=== PATIENT | female | born 1980 | race Caucasian/White ===

== ENCOUNTER 2017-12-28 11:01 | Emergency (ER) | payer OTHER ==
[~2017-12-28 11:01] MED LIST: OXYC1SOL5 PO; PRENTAB72 PO
[2017-12-28 11:11] VITALS: BP 104/59; PULSE 78; RESP 20; TEMP 98.5; O2SAT 99
--- NOTE | 2017-12-28 11:55 | PD ---
HPI Chief Complaint: Back/ Neck Pain or Injury Time Seen by Provider: 11:47 Travel History International Travel<30 days: No Contact w/Intl Traveler<30days: No Traveled to known affect area: No History of Present Illness HPI 37-year-old female presents emergency department evaluation of lower back pain that radiates to the legs that has been present for approximately 1 day. Says that she was lifting some chairs when she developed some pain in her lower back and is worsened over the last day. Says her pain is located lower lumbar region across the back that radiates into her right thigh and groin. Says the pain is shooting pain, burning pain. No palliative or provocative factors. Denies numbness or tingling the extremities. Denies weakness. Denies fevers, loss of bowel or bladder function, saddle anesthesia, IV drug use, direct trauma. PFSH Past Medical History Diminished Hearing: No GERD: Yes Migraines: Yes Tetanus Vaccination: Unknown Influenza Vaccination: Yes ?: Unknown LMP: TWO WEEKS AGO Social History Alcohol Use: No Tobacco Use: No Substance Use: No Allergies-Medications (Allergen,Severity, Reaction): Coded Allergies: Sulfa (Sulfonamide Antibiotics) (Unverified Allergy, Unknown, 03/12/17) Reported Meds & Prescriptions Reported Meds & Active Scripts Active Review of Systems Except as stated in HPI: all other systems reviewed are Neg Physical Exam Narrative GENERAL: Well-nourished, well-developed patient, in NAD SKIN: Focused skin assessment warm/dry. No rashes or lesions. HEAD: Normocephalic. Atraumatic. EYES: No scleral icterus. No injection or drainage. PERRLA, EOMI THROAT: No pharyngeal injection, exudates, or tonsillar hypertrophy. Airway is patent. NECK: Supple, trachea midline. No JVD or lymphadenopathy. No meningismus. CARDIOVASCULAR: Regular rate and rhythm without murmurs, gallops, or rubs. RESPIRATORY: Breath sounds equal bilaterally. No accessory muscle use. No wheezes, rales, or rhonchi MUSCULOSKELETAL: No cyanosis, or edema. BACK: No CVA tenderness. No rash. No point tenderness on palpation of the spine. Mild tenderness palpation lower paraspinous muscles of the lumbar spine. Bilateral lower extremities neurovascularly intact. DTRs 2/4. Data Data Last Documented VS Vital Signs Date Time Temp Pulse Resp B/P (MAP) Pulse Ox O2 Delivery O2 Flow Rate FiO2 12/28/17 11:11 98.5 78 20 104/59 (74) 99 Orders Orders Dexamethasone Inj (Decadron Inj) (12/28/17 12:00) Orphenadrine Inj (Norflex Inj) (12/28/17 12:00) MDM Medical Decision Making Medical Screen Exam Complete: Yes Emergency Medical Condition: Yes Differential Diagnosis Lumbar spine muscle spasms, lumbago, sciatica Narrative Course 37-year-old female presents emergency department evaluation of lower back pain that radiates to the legs that has been present for approximately 1 day. Says that she was lifting some chairs when she developed some pain in her lower back and is worsened over the last day. Says her pain is located lower lumbar region across the back that radiates into her right thigh and groin. Says the pain is shooting pain, burning pain. No palliative or provocative factors. Denies numbness or tingling the extremities. Denies weakness. Denies fevers, loss of bowel or bladder function, saddle anesthesia, IV drug use, direct trauma. Vital signs are stable. Physical exam findings are reassuring. There is some mild tenderness palpation of lower lumbar spine without obvious muscle spasms. Patient took 800 mg Motrin prior to arrival and this did seem to reduce pain slightly. Dexamethasone and Norflex administered. Patient will be discharged with Robaxin and Medrol Dosepak to start tomorrow. She is advised to follow-up with a primary care physician. Return for worsening or persistent symptoms. Diagnosis Primary Impression: Lumbago Qualified Codes: M54.5 - Low back pain Additional Impression: Back sprain Referrals: Primary Care Physician Additional Instructions: Perform light stretches of the lower back and legs, and alternate heat and ice packs. If you develop increased pain, weakness, fever, chills, or bowel or bladder issues, return to the ED for further treatment and evaluation. Follow up with your primary care physician in 2-3 days. Disposition: 01 DISCHARGE HOME Condition: Stable Adrianna Mccracken Dec 28, 2017 11:55
[2017-12-28] MEDS ORDERED: ORPHENADRINE INJ 60 MG/2 ML AMP IM ONE (12:00)
[2017-12-28] MEDS ORDERED: DEXAMETHASONE SOD PHOS 4 MG/ML VIAL IM ONE (12:00)
[2017-12-28] MEDS ORDERED: ROBA500T PO (12:18)
[2017-12-28] MEDS ORDERED: MEDR4PAK PO (12:18)
== END 2017-12-28 12:32 | disposition home or self-care (01) ==
LOC: PHEFT 11:01
DX: M54.5 Low back pain (principal); S33.5XXA Sprain of ligaments of lumbar spine, initial encounter; X50.9XXA Other and unspecified overexertion or strenuous movements or postures, initial encounter; K21.9 Gastro-esophageal reflux disease without esophagitis
CPT/HCPCS: 96372; 99283; J1100; J2360